=== PATIENT | male | born 1990 | race Caucasian/White ===

== ENCOUNTER 2016-11-22 16:35 | Emergency (ER) | payer MEDICAID, OTHER ==
[~2016-11-22] VITALS: Ht 160 cm; Wt 52.3 kg
[~2016-11-22 16:35] MED LIST: Acetaminophen PO; FERR-74 PO; PANT40TA3 PO; POLY17PO6 PO; SENN-133 PO
[2016-11-22 16:38] VITALS: BP 135/78; PULSE 79; RESP 20; O2SAT 98
--- NOTE | 2016-11-22 17:44 | ED.REPORT ---
HPI-Headache Date of Service Nov 22, 2016 ED Provider: Dr. Giorgi Haskins MD A 26 year old male with a history of depression and previous GI bleeds presents to the ED with a headache that began a week and a half ago. Recent associated symptoms include nausea and fatigue. Patient has had previous headaches but never this persistent. He has taken OTC medication with little relief. Patient was seen at Urgent Care for his symptoms on 11/18 and was prescribed dexamethasone with some relief, however the pain returned within 24 hours. He has been using Z-Quil ("3x more than recommended") every night for the past week. He denies any auras, vomiting or fevers. Nursing Notes Stated Complaint: HEADACHE, NAUSEA Chief Complaint: Headache Nursing Notes Reviewed: Yes Allergies: Coded Allergies: NSAIDS (Non-Steroidal Anti-Inflamma (Verified Allergy, Severe, GI Bleed, ) Scheduled Fluoxetine (Fluoxetine) 40 Mg Capsule 40 MG PO HS Scheduled PRN Metoclopramide (Metoclopramide) 10 Mg Tablet 10 MG PO QID PRN PRN he General Time Seen by MD: 17:43 Chief Complaint Headache Hx Obtained From: Patient Arrived By: Walk-in Sudden in Onset?: No Onset Occurred: 1 week ago Symptom Duration: Since onset Location: : Generalized Quality: Aching Severity: Current: Moderate Severity: Maximum: Moderate Associated with: Reports: Nausea, Denies: Aura motor, Aura sensory, Aura visual, Fever Pertinent Negative: Pt denies other symptoms Recent Healthcare: No recent hospitalization, Recent doctor visit Risk-Headache )( SAH Risk Stratification RF Statements: Risk factors reviewed )( IC Mass Risk Stratification RF Statements: Risk factors reviewed Past Medical History Past Medical History Notes: PCP: Liliana OROURKE Past Medical History Depression GI bleed Hx of headaches Denies: Migraines Past Surgical History None reported. Smoking History Never Smoker Social History Alcohol Use: Denies alcohol use Drug Use: Denies drug use Other Social History: Good social support, Local resident Occupation Works at [employer] Ambulatory Status Independent Review of Systems Denies auras Constitutional: Reports: Fatigue, Denies: Fever GI: Reports: Nausea, Denies: Vomiting Neurologic: Reports: Headache Complete sys rev & neg: except as marked. Physical Exam Initial Vital Signs Vital Signs (First) Date Time Temp Pulse Resp B/P Pulse Ox O2 Delivery O2 Flow Rate FiO2 11/22/16 16:38 36.5 79 20 135/78 98 Room Air Initial VS: Reviewed Extremities: Vascular intact, Neuro intact, No swelling, No tenderness Skin: Warm, Dry, No cyanosis Psychiatric: Mood/affect normal, Behavior normal, Normal thought content General/Constitutional: Awake, Alert Behavior: Positive: Anxious Head / Eyes: Atraumatic, Normocephalic, PERRL, EOMI Neck: Atraumatic, Supple, No meningismus, Full range of motion Neurologic: Oriented X3, Speech NL, No motor deficits, No sensory deficits, CN II - XII intact, Reflexes equal bilat Respiratory / Chest: Atraumatic, Breath sounds NL, Breath sounds = bilat, No respiratory distress Cardiovascular: Heart rate NL, Regular rhythm, Heart sounds NL, No gallop, No murmurs, No rubs Interpretation & Diagnostics Lab Results Interpretation Test 11/22/16 18:56 Hold Purple Top Tube Received (Received) Hold Blue Top Tube Received (Received) Hold [place] Top Tube Received (Received) Re-Eval/Medical Decision Re-Evaluation/Progress : Time of Eval: 20:07 )( Patient Status: Pain improved Re-Evaluation/Progress Note: Headache improved upon recheck. He is informed of his current results and the intended treatment plan. All questions are addressed. He understands and agrees with the plan. Counseled Regarding: Diagnosis, Lab results, Need for follow-up, When/why to return to ED Discharge & Departure Impression: Primary Impression: Headache Headache type: unspecified Headache chronicity pattern: acute headache Intractability: not intractable Qualified Code: R51 - Headache Disposition: Home Discharge Condition All VS Reviewed: Yes Condition: Improved Patient Instructions: Acute Headache (ED) Additional Instructions: Thank you for entrusting us with your care today. Your emergency department evaluation today included interview and examination. We treated with IV fluids, compazine and diphenhydramine. Exam and history do not suggest a serious cause for headache, it may be that stopping diphenhydramine for sleep is contributing. A clear cause of your symptoms was not identified so I recommend that you schedule a follow-up appointment with your primary care physician in the next week for a recheck. Take Tylenol 1,000mg every 6 hours and metoclopramide 10mg every 6 hours as needed for pain and nausea. Please return to the emergency department for any new or worsening conditions including any worsening headache, nausea, vomiting, neck stiffness, fevers, chills, lightheadedness, or dizziness. Referrals: Liliana Prince (PCP) Scribe Attestation Portions of this note were transcribed by Jerrell Perry. I, Dr. Haskins, personally performed the history, physical exam and medical decision-making; I reviewed and confirmed the accuracy of the information in the transcribed note. Signed by: Jerrell Perry, 11/22/16. copies to: Liliana Prince Donald L MD Nov 22, 2016 17:44 JERRELL PERRY Nov 22, 2016 17:44
[2016-11-22] MEDS ORDERED: 0.9% Sodium Chloride 1,000 ML IV ONE (17:59)
[2016-11-22] MEDS ORDERED: Ondansetron 2 mg/mL 2 mL Inj IVPUSH ONE (18:00)
[2016-11-22] MEDS ORDERED: ProchlorPERazine 5 mg/mL 2 mL Inj IVPUSH ONE (18:00)
[2016-11-22 18:39] VITALS: BP 121/66; PULSE 75; O2SAT 99
[2016-11-22] MEDS ORDERED: FLUO40CA PO (18:45)
[2016-11-22] MEDS ORDERED: METO10TA3 PO (20:06)
[2016-11-22 20:18] VITALS: BP 122/68; PULSE 70; RESP 16; O2SAT 97
== END 2016-11-22 20:16 | disposition home or self-care (01) ==
LOC: SED 16:35
DX: R51 Headache (principal); Z88.6 Allergy status to analgesic agent
CPT/HCPCS: 96374; 96375; 99284; J0780; J1200; J2405; J7030